=== PATIENT | female | born 2000 | race Hispanic/Latino ===

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

== ENCOUNTER 2022-12-28 09:08 | Inpatient (IN) | payer OTHER ==
[2022-12-28] VITALS (20 sets, daily range): BP systolic 110–145; BP diastolic 59–87; TEMP 97.6
[~2022-12-28] VITALS: Ht 157.5 cm; Wt 87.2 kg
[~2022-12-28 09:08] MED LIST: **PENDING PCN ENTRY XX SCH
[2022-12-28] MEDS ORDERED: PRENTAB9 PO (09:35)
[2022-12-28] MEDS ORDERED: LACTATED RINGER'S 1000 ML IV STA (10:16)
[2022-12-28] MEDS ORDERED: PENICILLIN G POTASSIUM 5 MU IV 5 MU in D5W MINI-BAG PLUS 100 ML IV STA ×2 (10:16→11:13)
[2022-12-28] MEDS ORDERED: FAMO20TA PO (10:20)
[2022-12-28] MEDS ORDERED: METHYLERGONOVINE MALEATE 0.2MG/ML 1ML VIAL IM PRN (10:20)
[2022-12-28] MEDS ORDERED: OXYTOCIN DRIP 30 UNITS in IV 1 EA IV PRN ×4 (10:20)
[2022-12-28] MEDS ORDERED: CARBOPROST TROMETHAMINE 250 MCG/ML AMP IM PRN (10:20)
[2022-12-28] MEDS ORDERED: TRANEXAMIC ACID INJection 1,000 MG in NS 100 ML IV PRN (10:20)
[2022-12-28] MEDS ORDERED: LIDOCAINE 1% MDV 20ML VIAL INFIL PRN (10:20)
[2022-12-28] MEDS ORDERED: HOME MED LIST COMPLETE! XX SCH (10:25)
[2022-12-28 11:13] LABS: HEMATOCRIT 37.3 % (36.0-47.0); MEAN CORPUSCULAR HEMOGLOBIN 29.2 pg (27.0-33.0); MEAN CORPUSCULAR HGB CONC 34.9 g/dl (32.0-36.5); MEAN CORPUSCULAR VOLUME 83.8 fl (80.0-96.0); PLATELET COUNT, AUTOMATED 244 10^3/uL (150-450); RED BLOOD COUNT 4.45 10^6/uL (4.00-5.40); WHITE BLOOD COUNT 10.1 10^3/uL (4.0-10.0)
[2022-12-28] MEDS: LR 1,000 ML IV SCH ×2 (11:28→18:40)
[2022-12-28] MEDS ORDERED: ePHEDrine SULFATE 25 MG/5 ML(5MG/ML) SYRINGE IVP PRN (12:00)
[2022-12-28] MEDS ORDERED: LR 500 ML IV PRN (12:00)
[2022-12-28] MEDS ORDERED: ONDANSETRON 4MG 2ML VIAL IV PRN (12:00)
[2022-12-28] MEDS ORDERED: NALOXONE INJ 0.4MG/1ML VIAL IV PRN (12:00)
[2022-12-28] MEDS ORDERED: diphenhydrAMINE 50MG/ML VIAL IV PRN (12:00)
[2022-12-28] MEDS ORDERED: EPIDURAL/PCA KEYS XX PRN (12:00)
[2022-12-28] MEDS ORDERED: PEN G POT 3,000,000 UNIT/50 ML 3,000,000 UNIT in IV 1 EA IV SCH (14:20)
[2022-12-28] MEDS: FENTANYL/ROPIVACAINE/NACL BAG 100 ML EPIDURAL SCH ×2 (14:21→21:30)
[2022-12-28] MEDS: PEN G POT 3,000,000 UNIT/50 ML 3,000,000 UNIT in IV 1 EA IV SCH ×2 (15:23→19:21)
[2022-12-28] MEDS ORDERED: OXYTOCIN DRIP 30 UNITS in IV 1 EA IV SCH ×5 (19:25→22:30)
[2022-12-28] MEDS ORDERED: LR 1,000 ML IV SCH ×2 (19:25→22:30)
[2022-12-28 22:23] LABS: CORD GAS ABE V -6.6; CORD GAS HCO3 V 20.8 MMOL/L; CORD GAS O2 SAT V 74.4 %; CORD GAS PCO2 V 48.1 mmHg; CORD GAS PH V 7.254 UNITS; CORD GAS PO2 V 32.8 mmHg; CORD GAS SBC V 18.6 MMOL/L; CORD GAS TCO2 V 22.3 MMOL/L
[2022-12-28 22:29] LABS: CORD GAS ABE A -8.3; CORD GAS HCO3 A 18.8 MMOL/L; CORD GAS O2 SAT A 60.9 %; CORD GAS PCO2 A 43.9 mmHg; CORD GAS PH A 7.249 UNITS; CORD GAS PO2 A 25.4 mmHg; CORD GAS SBC A 17.1 MMOL/L; CORD GAS TCO2 A 20.1 MMOL/L
[2022-12-28] MEDS ORDERED: IBUPROFEN 600MG TAB PO PRN (22:30)
[2022-12-28] MEDS ORDERED: METOCLOPRAMIDE INJ 10MG/2ML VIAL IV PRN (22:30)
[2022-12-28] MEDS ORDERED: METHYLERGONOVINE MALEATE 0.2 MG TAB PO PRN (22:30)
[2022-12-28] MEDS ORDERED: ANUSOL HC CREAM 30GM TOP PRN (22:30)
[2022-12-28] MEDS ORDERED: DOCUSATE SODIUM 100MG CAPSULE PO PRN (22:30)
[2022-12-28] MEDS ORDERED: ACETAMINOPHEN TAB 650MG DOSE (2X325MG) PO PRN (22:30)
[2022-12-28] MEDS ORDERED: MOM 30ML SUSPENSION UDC PO PRN (22:30)
[2022-12-28] MEDS ORDERED: RHOGAM 300MCG (1500IU) INJ IM SCH (22:30)
[2022-12-29] MEDS: DIBUCAINE 1% OINTMENT 30GM TOP PRN (00:56)
[2022-12-29] MEDS: IBUPROFEN 800 MG TAB PO PRN ×3 (00:57→20:46)
[2022-12-29] MEDS: ACETAMINOPHEN 500 MG TAB PO PRN (08:46)
[2022-12-29] MEDS: PRENATAL VITAMINS CHEWABLE TABLET PO SCH (09:00)
[2022-12-29 18:00] VITALS: BP 116/56; O2SAT 99
[2022-12-30] MEDS: IBUPROFEN 800 MG TAB PO PRN (05:38)
[2022-12-30] MEDS: DIBUCAINE 1% OINTMENT 30GM TOP PRN (07:56)
[2022-12-30] MEDS: PRENATAL VITAMINS CHEWABLE TABLET PO SCH (07:56)
[2022-12-30] MEDS: ACETAMINOPHEN 500 MG TAB PO PRN (07:57)
[2022-12-30] MEDS ORDERED: MEASLES,MUMPS,RUBELLA VACCINE INJ (MMR-II) SC.IMMUN ONE (09:00)
[2022-12-30] MEDS ORDERED: ACET1TAB55 PO (10:52)
[2022-12-30] MEDS ORDERED: IBUP-1022 PO (10:52)
== END 2022-12-30 13:30 | disposition home or self-care (01) | DRG 807 ==
LOC: M LDO 09:08 → M LDI 10:14 → M OBS 12-29 00:15
PROVIDERS: ADMIT Advanced Practice Midwife; ATTEND Advanced Practice Midwife
PROC: 10E0XZZ Delivery of Products of Conception, External Approach (ICD-10-PCS; principal; 2022-12-28)
PROC: 0HQ9XZZ Repair Perineum Skin, External Approach (ICD-10-PCS; 2022-12-28)
DX: O70.0 First degree perineal laceration during delivery (principal); Z37.0 Single live birth; Z3A.38 38 weeks gestation of pregnancy; O99.824 Streptococcus B carrier state complicating childbirth; O26.00 Excessive weight gain in pregnancy, unspecified trimester

== ENCOUNTER → 2023-12-25 | Outpatient (CLI) | payer OTHER ==
[~2023-12-25] MED LIST changes: -**PENDING PCN ENTRY XX SCH; +ACET1TAB55 PO; +FAMO20TA PO; +IBUP-1022 PO; +PRENTAB9 PO
== END ==
LOC: M PLAIMG 10:56
PROVIDERS: ATTEND Physician Assistant Surgical
DX: M65.841 Other synovitis and tenosynovitis, right hand (principal)

== ENCOUNTER → 2024-05-27 | Outpatient (CLI) | payer OTHER | LOC: M OUTALCOH 08:59 | PROVIDERS: ATTEND Psychiatry & Neurology Psychiatry | DX: Z03.89 Encounter for observation for other suspected diseases and conditions ruled out (principal) ==